=== PATIENT | male | born 2000 | race Hispanic/Latino ===

== ENCOUNTER 2023-07-02 10:25 | Emergency (ER) | payer BC ==
--- NOTE | 2023-07-02 10:59 | ER ---
Nurse's Notes [facility] Name: Juan Portillo Age: 22 yrs Sex: Male : 2000 Arrival Date: 07/02/2023 Time: 10:25 Bed 17 Private MD: Diagnosis: Abrasion, right knee Presentation: 07/01 10:38 Chief complaint: Patient states: fell on right knee on concrete a couple days ago, has iw abrasion to knee, is worried that it's infected because it is hurting. 10:38 Acuity: SUPRIYA 4 iw 10:39 Coronavirus screen: At this time, the client does not indicate any symptoms associated iw with coronavirus-19. Ebola Screen: Patient negative for fever greater than or equal to 101.5 degrees Fahrenheit, and additional compatible Ebola Virus Disease symptoms Patient denies exposure to infectious person. Patient denies travel to an Ebola-affected area in the 21 days before illness onset. No symptoms or risks identified at this time. Initial Sepsis Screen: Does the patient meet any 2 criteria? No. Patient's initial sepsis screen is negative. Does the patient have a suspected source of infection? No. Patient's initial sepsis screen is negative. Risk Assessment: Do you want to hurt yourself or someone else? Patient reports no desire to harm self or others. Onset of symptoms was June 30, 2023. 10:39 Method Of Arrival: Ambulatory iw Triage Assessment: 10:47 General: Appears in no apparent distress. Behavior is calm, cooperative. Pain: Pain: iw Complains of pain in right knee. 10:47 Neuro: Level of Consciousness is awake, alert, obeys commands. iw Historical: - Allergies: 10:39 No Known Allergies; iw - Home Meds: 10:39 None [Active]; iw - PMHx: 10:39 None; iw - PSHx: 10:39 Appendectomy; iw - Immunization history:: Last tetanus immunization: unknown. - Infectious Disease History:: Denies. - Social history:: Smoking status: Patient reports the use of cigarette tobacco products, denies chronic smoking, but will smoke occasionally, Patient uses street drugs, marijuana. Screenin:42 [facility] ED Fall Risk Assessment (Adult) History of falling in the last 3 months, rs5 including since admission No falls in past 3 months (0 pts) Confusion or Disorientation No (0 pts) Intoxicated or Sedated No (0 pts) Impaired Gait No (0 pts) Mobility Assist Device Used No (0 pt) Altered Elimination No (0 pt) Score/Fall Risk Level 0 - 2 = Low Risk Oriented to surroundings, Maintained a safe environment. Abuse screen: Denies threats or abuse. Nutritional screening: No deficits noted. Tuberculosis screening: No symptoms or risk factors identified. Assessment: 10:44 Reassessment: quarter inch abrasion noted on pt's right knee. No bleeding, redness or rs5 signs of infection noted, cleansed with normal saline, Neosporin and non adherent bandage applied and wrapped with gauze. General: Appears in no apparent distress. comfortable, Behavior is calm, cooperative. Pain: Complains of pain in right knee Pain currently is 6 out of 10 on a pain scale. Quality of pain is described as aching, Is continuous. Neuro: Level of Consciousness is awake, alert, obeys commands, Oriented to person, place, time, situation. Cardiovascular: Patient's skin is warm and dry. Rhythm is regular. Respiratory: Airway is patent Respiratory effort is even, unlabored, Respiratory pattern is regular, symmetrical. GI: Abdomen is round non-distended, Abd is soft and non tender X 4 quads. : No signs and/or symptoms were reported regarding the genitourinary system. EENT: No signs and/or symptoms were reported regarding the EENT system. Derm: Skin is intact, Skin is pink, warm \T\ dry. Musculoskeletal: Range of motion: intact in all extremities. 11:10 Reassessment: Patient and/or family updated on plan of care and expected duration. Pain rs5 level reassessed. Patient is alert, oriented x 3, equal unlabored respirations, skin warm/dry/pink. Vital Signs: 10:39 BP 130 / 63; Pulse 65; Resp 16; Temp 97.9; Pulse Ox 96% ; Weight 108.86 kg; Height 5 iw ft. 11 in. ; Pain 7/10; 10:39 Body Mass Index 33.47 (108.86 kg, 180.34 cm) iw 10:39 Pain Scale: Adult iw ED Course: 10:28 Patient arrived in ED. ra3 10:35 Pam Velazquez FNP [facility] jh7 10:35 Kayden Medley MD is Attending Physician. [facility] 10:38 Triage completed. iw 10:40 Arm band placed on. iw 10:44 Patient has correct armband on for positive identification. Bed in low position. Call rs5 light in reach. Side rails up X2. 10:49 Alfred Dasilva, RN is Primary Nurse. rs5 11:00 No provider procedures requiring assistance completed. rs5 11:20 Patient did not have IV access during this emergency room visit. rs5 Administered Medications: No medications were administered Medication: 11:00 VIS not applicable for this client. rs5 Outcome: 10:58 Discharge ordered by . jh7 11:20 Discharged to home ambulatory, rs5 11:20 Condition: stable 11:20 Discharge instructions given to patient, family, Instructed on discharge instructions, follow up and referral plans. medication usage, Demonstrated understanding of instructions, follow-up care, medications, Prescriptions given X 2, 11:23 Patient left the ED. rs5 Signatures: Genevieve Alejandra RN RN Pam Velazquez, [employer] SALES REPRESENTATIVE [employer] SALES REPRESENTATIVE [facility] Alfred Dasilva, RN RN [facility] Michelle Luz ra3 Corrections: (The following items were deleted from the chart) 10:39 10:39 PSHx: None; iw iw 10:48 10:47 Pain: iw iw
--- NOTE | 2023-07-02 10:59 | EDPHYS ---
Physician Documentation [facility] Name: Juan Portillo Age: 22 yrs Sex: Male : 2000 Arrival Date: 07/02/2023 Time: 10:25 Bed 17 Private MD: ED Physician Kayden Medley HPI: 07/01 10:38 This 22 yrs old Male presents to ER via Ambulatory with complaints of Fall Injury, Knee jh7 Pain - concerned for infection. 10:38 Details of fall: The patient fell from an upright position, while walking. Onset: The jh7 symptoms/episode began/occurred 3 day(s) ago. Associated injuries: The patient sustained right knee, abrasion. 11:28 Patient slipped and fell on concrete, injuring his right knee, 3 days ago. He reports jh7 that he has no issue walking, full range of motion, but is concerned that the abrasion on his knee is getting infected. Denies fever.. Historical: - Allergies: 10:39 No Known Allergies; iw - Home Meds: 10:39 None [Active]; iw - PMHx: 10:39 None; iw - PSHx: 10:39 Appendectomy; iw - Immunization history:: Last tetanus immunization: unknown. - Infectious Disease History:: Denies. - Social history:: Smoking status: Patient reports the use of cigarette tobacco products, denies chronic smoking, but will smoke occasionally, Patient uses street drugs, marijuana. ROS: 11:28 Constitutional: Negative for fever, chills, and weight loss, Neck: Negative for injury, jh7 pain, and swelling, Cardiovascular: Negative for chest pain, palpitations, and edema, Respiratory: Negative for shortness of breath, cough, wheezing, and pleuritic chest pain, Abdomen/GI: Negative for abdominal pain, nausea, vomiting, diarrhea, and constipation, Back: Negative for injury and pain, MS/Extremity: Negative for injury and deformity, Neuro: Negative for headache, weakness, numbness, tingling, and seizure, 11:28 Skin: Positive for abrasion(s), of the right knee, Negative for cellulitis, swelling, 11:28 All other systems are negative, Exam: 11:28 Constitutional: This is a well developed, well nourished patient who is awake, alert, jh7 and in no acute distress. Head/Face: Normocephalic, atraumatic. Neck: Trachea midline, no thyromegaly or masses palpated, and no cervical lymphadenopathy. Supple, full range of motion without nuchal rigidity, or vertebral point tenderness. No Meningismus. Cardiovascular: Regular rate and rhythm with a normal S1 and S2. No gallops, murmurs, or rubs. Normal PMI, no JVD. No pulse deficits. Respiratory: Lungs have equal breath sounds bilaterally, clear to auscultation and percussion. No rales, rhonchi or wheezes noted. No increased work of breathing, no retractions or nasal flaring. Abdomen/GI: Soft, non-tender, with normal bowel sounds. No distension or tympany. No guarding or rebound. No evidence of tenderness throughout. MS/ Extremity: Pulses equal, no cyanosis. Neurovascular intact. Full, normal range of motion. Neuro: Awake and alert, GCS 15, oriented to person, place, time, and situation. Motor strength 5/5 in all extremities. Sensory grossly intact. Normal gait. 11:28 Musculoskeletal/extremity: Extremities: noted in the right knee: abrasion, No cellulitis, tenderness, or purulent drainage noted., ROM: full active range of motion, in the right knee, Circulation is intact in all extremities. Pulses: are normal with no appreciated deficits, Perfusion: the extremity is normally perfused throughout, pink, warm, with brisk capillary refill, Sensation intact. Weight bearing: able to fully bear weight, without difficulty, Vital Signs: 10:39 BP 130 / 63; Pulse 65; Resp 16; Temp 97.9; Pulse Ox 96% ; Weight 108.86 kg; Height 5 iw ft. 11 in. ; Pain 7/10; 10:39 Body Mass Index 33.47 (108.86 kg, 180.34 cm) iw 10:39 Pain Scale: Adult iw MDM: 10:35 Patient medically screened. [facility] 10:58 Differential diagnosis: abrasion, Wound infection, cellulitis. Data reviewed: vital [facility] signs, nurses notes. Counseling: I had a detailed discussion with the patient and/or guardian regarding the historical points, exam findings, and any diagnostic results supporting the discharge/admit diagnosis, to return to the emergency department if symptoms worsen or persist or if there are any questions or concerns that arise at home. ED course: Patient agree that x-rays were not indicated at this time. Informed him that the wound did not look infected at this time and advised him to start with mupirocin. If redness develops or the wound seeps purulent drainage, may start the Bactrim.. 07/01 10:52 Order name: Wound Care; Complete Time: 10:58 [facility] Administered Medications: No medications were administered Disposition: 11:32 Co-signature as Attending Physician, Kayden Medley MD I reviewed the patient's care rt provided by the Advanced Practice Provider and agree with the diagnosis and treatment plan. Chart complete. Chart complete. Disposition Summary: 07/02/23 10:58 Discharge Ordered Notes: Location: Home [facility] Problem: new [facility] Symptoms: are unchanged [facility] Condition: Stable [facility] Diagnosis - Abrasion, right knee [facility] Followup: [facility] - With: Private Physician - When: 2 - 3 days - Reason: Recheck today's complaints Discharge Instructions: - Discharge Summary Sheet [facility] - Abrasion [facility] - Acute Knee Pain, Adult [facility] Forms: - Medication Reconciliation Form [facility] - Thank You Letter [facility] - Antibiotic Education [facility] - Patient Portal Instructions [facility] - Leadership Thank You Letter [facility] - Work release form rs5 Prescriptions: - mupirocin 2 % Topical ointment - apply 1 application TOPICAL route 3 times per day for 7 days; 22 gram; Refills: [facility] 0, Product Selection Permitted - Bactrim DS 800-160 mg Oral Tablet - take 1 tablet ORAL route every 12 hours for 7 days; 14 tablet; Refills: 0, jh7 Product Selection Permitted Signatures: Genevieve Alejandra RN RN iw Pam Velazquez FNP DEPUTY CHIEF COUNSEL [facility] Kayden Medley MD MD rt Corrections: (The following items were deleted from the chart) 10:39 10:39 PSHx: None; iw jason
[2023-07-02 12:09] VITALS: BP 130/63; TEMP 97.9; O2SAT 96
== END 2023-07-02 11:23 | disposition home or self-care (01) ==
LOC: ER 10:25
DX: S80.211A Abrasion, right knee, initial encounter (principal)
CPT/HCPCS: 99283